=== PATIENT | female | born 1990 | race Caucasian/White ===

== ENCOUNTER 2017-03-09 09:34 | Emergency (ER) | payer OTHER, MEDICAID ==
[~2017-03-09] VITALS: Ht 167.6 cm; Wt 63.4 kg
[2017-03-09] MEDS ORDERED: KETOROLAC TROMETHAMINE 60 MG/2 ML VIAL IM ONE (10:15)
[2017-03-09 12:26] VITALS: BP 103/59
== END 2017-03-09 12:28 | disposition home or self-care (01) ==
LOC: EMS 09:36
DX: S16.1XXA Strain of muscle, fascia and tendon at neck level, initial encounter (principal); V49.49XA Driver injured in collision with other motor vehicles in traffic accident, initial encounter; Y93.89 Activity, other specified; Y92.411 Interstate highway as the place of occurrence of the external cause; Y99.8 Other external cause status
CPT/HCPCS: 72040; 96372; 99284; J1885